=== PATIENT | male | born 1965 | race Caucasian/White ===

== ENCOUNTER → 2022-01-20 | Outpatient (CLI) | payer OTHER ==
[~2022-01-20] MED LIST: CIPR500T78 PO; CLIN-144 PO; FAMO-119 PO; HYDR-3455 PO; IBUP-1779 PO; IBUP200T48 PO; METR500T PO; PRD20T PO; SULF-222
--- NOTE | 2022-01-20 15:43 | Diagnostic Imaging Report ---
PROCEDURE: CT abdomen and pelvis without contrast. TECHNIQUE: Multiple contiguous axial images were obtained through the abdomen and pelvis without the use of intravenous contrast. Auto Exposure Controls were utilized during the CT exam to meet ALARA standards for radiation dose reduction. INDICATION: Ventral hernia. FINDINGS: There is a large ventral hernia. The hernia defect measures 11 cm from top to bottom x 12 cm transversely. There are multiple bowel loops within the hernia sac. There is no evidence of obstruction. Liver appears normal. There is some sediment in the dependent portion of the gallbladder. Pancreas is unremarkable. There is a 1.7 cm left adrenal nodule. Kidneys are unremarkable. There is aortic atherosclerosis but no aneurysm. There are postoperative changes from partial sigmoid resection. The appendix is normal. There is no intraperitoneal free air or free fluid. Urinary bladder is normal. Prostate is not enlarged. IMPRESSION: Large complex incisional hernia in the mid lower abdomen. There is no evidence of obstruction or angulation. There is a left adrenal nodule that is stable compared to prior exam from 09/03/2014. Dictated by: Dictated on workstation # [id number]
== END ==
LOC: RAD 13:23
PROVIDERS: ATTEND Surgery
DX: E27.9 Disorder of adrenal gland, unspecified (principal); K43.2 Incisional hernia without obstruction or gangrene
CPT/HCPCS: 74176